=== PATIENT | male | born 1970 | race Caucasian/White ===

== ENCOUNTER 2017-01-10 14:38 | Emergency (ER) | payer BC, OTHER ==
[~2017-01-10] VITALS: Ht 180.3 cm; Wt 106.6 kg
[2017-01-10 15:48] VITALS: BP 159/99
[2017-01-10] MEDS ORDERED: HYDROmorphone HCL 2 MG/ML VL IM ONE (16:00)
[2017-01-10] MEDS ORDERED: ONDANSETRON HCL 4 MG/2 ML VIAL IM ONE (16:00)
== END 2017-01-10 16:52 | disposition home or self-care (01) ==
LOC: ER 14:38
DX: M47.9 Spondylosis, unspecified (principal); Z88.0 Allergy status to penicillin
CPT/HCPCS: 72110; 96372; 99284; J1170; J2405

== ENCOUNTER 2017-01-29 20:48 | Emergency (ER) | payer BC ==
[~2017-01-29] VITALS: Ht 180.3 cm; Wt 104.3 kg
[2017-01-29 22:27] VITALS: BP 134/81
[2017-01-29] MEDS ORDERED: KETOROLAC TROMETH 30 MG/ML 1ML VIAL IV ONE (22:45)
[2017-01-29] MEDS ORDERED: KETOROLAC TROMETH 30 MG/ML 1ML VIAL IM ONE (22:45)
== END 2017-01-29 23:21 | disposition home or self-care (01) ==
LOC: ER 21:04
DX: S82.432A Displaced oblique fracture of shaft of left fibula, initial encounter for closed fracture (principal); Z88.0 Allergy status to penicillin; W18.39XA Other fall on same level, initial encounter; Y93.89 Activity, other specified; Y92.89 Other specified places as the place of occurrence of the external cause; Y99.8 Other external cause status
CPT/HCPCS: 73590; 73600; 73620; 96372; 99284; J1885